=== PATIENT | male | born 1960 | race Caucasian/White ===

== ENCOUNTER 2022-10-12 07:17 | Day surgery (SDC) | payer SELFPAY ==
[2022-10-12 07:49] VITALS: BP 140/77; PULSE 56; RESP 18; TEMP 36.9; O2SAT 96; BMI 34.8
[2022-10-12] MEDS: Lactated Ringers 1,000 ML 15 ML IV (07:53)
--- NOTE | 2022-10-12 08:17 | HP.PCM_ITS ---
[facility] - General General Date of Admission: 10/12/22 Date of Service: 10/12/22 Chief Complaint: Screening colonoscopy HPI Narrative FANY LUIS, is a 62 M who presents today for screening colonoscopy. He has a past medical history of mild hypertension. He does not take any medicines on a daily basis. He had a colonoscopy approximately 10 years ago and it was normal. He is not having any bleeding. He does not have abdominal pain. He does not have any chest pain or shortness of breath. Overall is in very good health. [facility], [facility] Medical History (Updated 10/09/22 @ 12:21 by Ebony Calvo) Alcohol use Anxiety Back pain Former smoker High cholesterol Wears glasses Home Medications NK 10/09/22 [History Last Taken Unknown] Allergy/AdvReac Type Severity Reaction Status Date / Time codeine AdvReac Severe Itching Verified 10/12/22 07:47 Surgical History (Updated 10/09/22 @ 12:21 by Ebony Calvo) History of back surgery History of colonoscopy History of corneal transplant Hx of surgical procedure Social History Smoking Status: Former smoker ROS Review of Systems ROS Unobtainable: other Constitutional Constitutional: Denies fatigue, fever(s), poor appetite, weight gain or weight loss ENT HEENT: Denies mouth lesions Cardiovascular Cardiovascular: Denies abdominal bloating, abdominal edema or abdominal pain Respiratory/Chest Respiratory/Chest: Denies change in mental status, change in phlegm color, chest congestion or chest tightness Gastrointestinal Gastrointestinal: Denies belching, bloating, change in bowel habits, change in stool character, chewing difficulty, coffee ground emesis, constipation, cramping, diarrhea, dyspepsia, dysphagia, early satiety, excessive flatus, fecal incontinence, heartburn, hematemesis, hematochezia, hemorrhoids, loose stools, melena, nausea, odynophagia, rectal bleeding, tenesmus, vomiting or weight changes Genitourinary Genitourinary: Denies abdominal discomfort, burning urination or itching Musculoskeletal Musculoskeletal: Reports as per HPI; Denies muscle weakness or myalgias Integumentary Integumentary: Denies jaundice Neurologic Neurologic: Denies lack of coordination or weakness Psychiatric Psychiatric: Denies confusion, depression, memory loss, mood swings, paranoia or suicidal ideation Endocrine Endocrinology: Denies systems reviewed and no addt'l complaints, except as documented Hematologic/Lymphatic Hematologic/Lymphatic: Denies anemia, easy bleeding, easy bruising or lymphadenopathy Allergic/Immunologic Allergic/Immunologic: Denies systems reviewed and no addt'l complaints, except as documented Vital Signs Vital Signs Vital Signs: 10/12/22 07:49 10/12/22 07:49 Temperature 98.4 F Temperature Source Temporal Pulse Rate 56 L Respiratory Rate 18 Respiratory Pattern Normal Blood Pressure 140/77 H Blood Pressure Mean 98 Blood Pressure Source Monitor Blood Pressure Position Sitting Blood Pressure Location Left Arm Pulse Ox 96 Oxygen Delivery Method Room Air Weight Weight: 235 lb 14.314 oz Body Mass Index (BMI) 34.8 Physical Exam Const alert General Appearance: cooperative Orientation / Consciousness: oriented to person HEENT hearing grossly normal bilaterally Head and Scalp: normal to inspection Face and Sinus: face symmetric Nose: external nose normal Mouth: oral and palatal mucosa normal Eyes conjunctivae normal General Eye: normal appearance of both eyes Neck full ROM General: normal visual inspection Lymph Lymphatic: no lymphadenopathy noted Chest inspection of chest normal and palpation of chest normal Chest: symmetrical chest wall rise Resp normal respiratory effort Effort and Inspection: able to speak in complete sentences Cardio regular rate GI non-distended Percussion: normal to percussion Rectal Exam: deferred Neuro Speech: speech normal Gait (Neuro): normal gait Assessment & Plan Assessment/Plan (1) Encounter for screening for malignant neoplasm of colon: PLAN: He will undergo screening colonoscopy. He was explained alternatives, risk, benefits including outstanding bleeding, infection, sepsis, perforation, need for emergent surgery . He will have an ASA of 2.
[2022-10-12 08:46] VITALS: BP 101/63; BP 140/77; PULSE 69; RESP 14; TEMP 36.5; O2SAT 96
[2022-10-12 08:48] VITALS: BP 102/64; BP 140/77; PULSE 64; RESP 16; O2SAT 95
--- NOTE | 2022-10-12 08:48 | OP.COLON_ITS ---
Patient Name: Adonay Bauman Procedure Date: 10/12/2022 8:13 AM Date of : 1960 Age: 62 Procedure: Colonoscopy Indications: Screening for colorectal malignant neoplasm Providers: Frederick Brandon DO Referring MD: Frederick Brandon DO Medicines: Monitored Anesthesia Care Patient Profile: This is a 62 year old male. Refer to note in patient chart for documentation of history and physical. Last Colonoscopy: more than 10 years ago. Complications: No immediate complications. Procedure: Pre-Anesthesia Assessment: - Prior to the procedure, a History and Physical was performed, and patient medications and allergies were reviewed. The patient is competent. The risks and benefits of the procedure and the sedation options and risks were discussed with the patient. All questions were answered and informed consent was obtained. Patient identification and proposed procedure were verified by the physician in the pre-procedure area. Mental Status Examination: alert and oriented. Airway Examination: normal oropharyngeal airway and neck mobility. Respiratory Examination: clear to auscultation. CV Examination: normal. Prophylactic Antibiotics: The patient does not require prophylactic antibiotics. Prior Anticoagulants: The patient has taken no previous anticoagulant or antiplatelet agents. ASA Grade Assessment: II - A patient with mild systemic disease. After reviewing the risks and benefits, the patient was deemed in satisfactory condition to undergo the procedure. The anesthesia plan was to use monitored anesthesia care (MAC). Immediately prior to administration of medications, the patient was re-assessed for adequacy to receive sedatives. The heart rate, respiratory rate, oxygen saturations, blood pressure, adequacy of pulmonary ventilation, and response to care were monitored throughout the procedure. The physical status of the patient was re-assessed after the procedure. After I obtained informed consent, the scope was passed under direct vision. Throughout the procedure, the patient's blood pressure, pulse, and oxygen saturations were monitored continuously. The colonoscope was introduced through the anus and advanced to the cecum, identified by appendiceal orifice and ileocecal valve. The colonoscopy was performed without difficulty. The patient tolerated the procedure well. The quality of the bowel preparation was adequate. Scope In: 8:30:15 AM Scope Withdrawal Time 0 hours 10 minutes 43 seconds Scope Out: 8:43:31 AM Total Procedure Duration Time 0 hours 13 minutes 16 seconds Findings: The perianal and digital rectal examinations were normal. A few small-mouthed diverticula were found in the recto-sigmoid colon and sigmoid colon. The exam was otherwise without abnormality on direct and retroflexion views. Impression: - Diverticulosis in the recto-sigmoid colon and in the sigmoid colon. - The examination was otherwise normal on direct and retroflexion views. - No specimens collected. Recommendation: - Discharge patient to home. - Resume previous diet. - Continue present medications. - Repeat colonoscopy in 10 years for screening purposes. Procedure Code(s): --- Professional --- G0121, Colorectal cancer screening; colonoscopy on individual not meeting criteria for high risk CPT copyright 2017 [employer]. All rights reserved. The codes documented in this report are preliminary and upon podiatric surgeon review may be revised to meet current compliance requirements. Frederick Brandon DO 10/12/2022 8:48:18 AM This report has been signed electronically. Number of Addenda: 0 Note Initiated On: 10/12/2022 8:13 AM
--- NOTE | 2022-10-12 08:49 | OP.CCLET_ITS ---
10/12/2022 Alee Re : Colonoscopy procedure for Adonay Bauman Dear Alee This procedure was performed on October. My impressions and recommendations are as follows: Impressions : - Diverticulosis in the recto-sigmoid colon and in the sigmoid colon. - The examination was otherwise normal on direct and retroflexion views. - No specimens collected. Recommendations : - Discharge patient to home. - Resume previous diet. - Continue present medications. - Repeat colonoscopy in 10 years for screening purposes. My findings are described in the full procedure note, which is enclosed. If I can be of further assistance, please feel free to contact me at . Sincerely, Frederick Brandon DO 10/12/2022 8:48:18 AM This report has been signed electronically.
[2022-10-12 08:55] VITALS: BP 100/71; BP 140/77; PULSE 50; RESP 16; O2SAT 96
[2022-10-12 09:00] VITALS: BP 107/68; BP 140/77; PULSE 50; RESP 16; O2SAT 96
[2022-10-12 09:06] VITALS: BP 113/78; BP 140/77; PULSE 60; RESP 16; TEMP 36.3; O2SAT 98
== END 2022-10-12 09:36 | disposition home or self-care (01) ==
LOC: EN 07:18 → AC 07:19
PROVIDERS: Referring Provider Internal Medicine Gastroenterology; Visit Provider Internal Medicine Gastroenterology
PROC: 0DJD8ZZ Inspection of Lower Intestinal Tract, Via Natural or Artificial Opening Endoscopic (ICD-10-PCS; CPT 45378; principal; 2022-10-12 08:10)
DX: Z12.11 Encounter for screening for malignant neoplasm of colon (principal); K57.30 Diverticulosis of large intestine without perforation or abscess without bleeding; E78.00 Pure hypercholesterolemia, unspecified; I10 Essential (primary) hypertension; Z87.891 Personal history of nicotine dependence
CPT/HCPCS: 45378; J7120